=== PATIENT | male | born 1990 | race Caucasian/White ===

== ENCOUNTER 2017-08-29 11:47 | Emergency (ER) | payer MEDICAID, OTHER ==
[~2017-08-29] VITALS: Ht 172.7 cm; Wt 92.0 kg
[~2017-08-29 11:47] MED LIST: Z.0.NO CURRENT MEDS
[2017-08-29 11:49] VITALS: BP 184/107; PULSE 119; RESP 18; TEMP 98; O2SAT 100
--- NOTE | 2017-08-29 12:32 | PD ---
HPI Chief Complaint: Complaint Time Seen by Provider: 12:10 Travel History International Travel<30 days: No Contact w/Intl Traveler<30days: No Traveled to known affect area: No History of Present Illness HPI 27-year-old male presents emergency Department with complaint of burning on urination 5-6 days. Denies penile drainage, discharge, pain. Denies testicular pain or swelling. Reports urinary frequency. Denies abdominal pain , fever, vomiting. Unknown exposure to STI/STD. He says he is going through divorce and has had a new sexual partner recently. Reports using condoms. Has not taken any medications or drainage and CVA symptoms. No known aggravating or relieving factors. No known allergies. Primary care provider is Dr. Sosa. No current medications. No significant medical history. No other modifying factors or associated signs and symptoms. PFSH Past Surgical History Tonsillectomy: Yes Social History Alcohol Use: Yes (SOCIALLY) Tobacco Use: No Substance Use: No Allergies-Medications (Allergen,Severity, Reaction): Coded Allergies: No Known Allergies (Unverified Adverse Reaction, Unknown, 08/29/17) Reported Meds & Prescriptions Reported Meds & Active Scripts Active Reported No Current Meds (Miscellaneous Medication) Misc Review of Systems Except as stated in HPI: all other systems reviewed are Neg Physical Exam Narrative GENERAL: Well-nourished, well-developed male patient, in no acute distress SKIN: Warm and dry. HEAD: Atraumatic. Normocephalic. EYES: Pupils equal and round. No scleral icterus. No injection or drainage. ENT: Mucosa pink and moist. Airway patent. NECK: Trachea midline. CARDIOVASCULAR: Regular rate and rhythm. No murmur appreciated. RESPIRATORY: No accessory muscle use. Clear to auscultation. Breath sounds equal bilaterally. GASTROINTESTINAL: Abdomen soft, non-tender, nondistended. Hepatic and splenic margins not palpable. Bowel sounds are active 4 quadrants. MUSCULOSKELETAL: No obvious deformities. No clubbing. No cyanosis. No edema. NEUROLOGICAL: Awake and alert. Oriented 3. No obvious cranial nerve deficits. Motor grossly within normal limits. Normal speech. PSYCHIATRIC: Appropriate mood and affect; insight and judgment normal. Data Data Last Documented VS Vital Signs Date Time Temp Pulse Resp B/P (MAP) Pulse Ox O2 Delivery O2 Flow Rate FiO2 08/29/17 13:27 100 18 179/81 (113) 100 08/29/17 11:49 98.0 Orders Orders Gc And Chlamydia Pcr (08/29/17 12:17) Urinalysis - C+S If Indicated (08/29/17 12:17) Ceftriaxone Inj (Rocephin Inj) (08/29/17 12:45) Lidocaine 1% Inj (50 Ml) (Xylocaine 1% I (08/29/17 12:45) Azithromycin (Zithromax) (08/29/17 12:45) Ondansetron Odt (Zofran Odt) (08/29/17 12:45) Metronidazole (Flagyl) (08/29/17 12:45) Ed Discharge Order (08/29/17 13:20) Labs Laboratory Tests Test 08/29/17 11:25 Urine Color COLORLESS Urine Turbidity CLEAR Urine pH 6.5 Urine Specific [place] 1.002 Urine Protein NEG mg/dL Urine Glucose (UA) NEG mg/dL Urine Ketones NEG mg/dL Urine Occult Blood NEG Urine Nitrite NEG Urine Bilirubin NEG Urine Urobilinogen LESS THAN 2.0 MG/DL Urine Leukocyte Esterase NEG Urine RBC LESS THAN 1 /hpf Urine WBC 1 /hpf Microscopic Urinalysis Comment CULT NOT INDICATED Chlamydia trachomatis DNA (PCR) NOT DETECTED Neisseria gonorrhoeae DNA (PCR) NOT DETECTED MDM Medical Decision Making Medical Screen Exam Complete: Yes Emergency Medical Condition: Yes Medical Record Reviewed: Yes Differential Diagnosis Dysuria, UTI, chlamydia, gonorrhea, Trichomonas, dehydration Narrative Course 7-year-old male with dysuria. Denies penile discharge, pain. Denies testicular pain or swelling. She is afebrile nontoxic pain. Denies fever, vomiting. Patient has severe anxiety when he comes in to hospitals. He appears anxious. His heart rate and blood pressure elevated. He says this is a normal reaction for him. Denies any abdominal pain. Urinalysis, chlamydia, gonorrhea ordered. 1317: Urinalysis with no signs of infection. Chlamydia and gonorrhea pending. Patient wants to be empirically treated for STI's so he doesn't have to return back to the emergency department or follow-up for him and if needed. Rocephin, azithromycin, Flagyl administered in the ER. Patient to follow-up with the health department or primary care for complete STI/STD panel. Instructed patient to follow up with primary care provider. Patient verbalizes understanding and agreement with treatment plan. Patient is medically cleared and stable for discharge. Discussed reasons to return to the emergency department. Patient agrees with treatment plan. The patients vital signs are stable and the patient is stable for outpatient follow-up and treatment. Patient discharged home, stable and in no acute distress. Diagnosis Primary Impression: Dysuria Referrals: [facility] Primary Care Physician Patient Instructions: Chlamydia (ED), Dysuria (ED), General Instructions, Gonorrhea (ED), Nonspecific Urethritis in Men (ED), Trichomoniasis (ED) Additional Instructions: Avoid sexual activity for 14 days in the time that you have been treated anterior sexual partner/s have been treated Inform all sexual partners within the past 3-6 months that they need to be evaluated and treated Use condoms every time you have sex Follow-up with primary care provider Follow up at health department for full STD screening Return to the emergency department immediately with worsening of symptoms Med/Other Pt SpecificInfo: No Change to Meds, No Meds Exist/No RX given Disposition: 01 DISCHARGE HOME Condition: Stable Lisa Grimm Aug 29, 2017 12:31
[2017-08-29] MEDS ORDERED: LIDOCAINE HCL 1% 50 ML VIAL IM ONE (12:45)
[2017-08-29] MEDS ORDERED: cefTRIAXone 250 MG VIAL IM ONE (12:45)
[2017-08-29] MEDS ORDERED: metroNIDAZOLE 500 MG TAB PO ONE (12:45)
[2017-08-29] MEDS ORDERED: AZITHROMYCIN 250 MG TAB PO ONE (12:45)
[2017-08-29] MEDS ORDERED: ONDANSETRON ODT 4 MG TAB PO ONE (12:45)
[2017-08-29 12:48] LABS: BLOOD, URINE NEG (NEG); GLUCOSE,URINE NEG (NEG); KETONE, URINE NEG (NEG); NITRITE,URINE NEG (NEG); PH, URINE 6.5 (5.0-8.5); URINE COLOR COLORLESS (YELLW/STRAW)
[2017-08-29 12:52] LABS: COMMENT (UR) CULT NOT INDICATED; CULTURE IF INDICATED CULT NOT INDICATED
[2017-08-29 13:27] VITALS: BP 179/81
[2017-08-29 16:12] LABS: CHLAMYDIA PCR NOT DETECTED (NOT DETECT); NEISSERIA PCR NOT DETECTED (NOT DETECT)
== END 2017-08-29 13:28 | disposition home or self-care (01) ==
LOC: NEPD 11:47
DX: R30.0 Dysuria (principal)
CPT/HCPCS: 81001; 87491; 87591; 96372; 99284; J0696